=== PATIENT | male | born 1985 | race Caucasian/White ===

== ENCOUNTER 2023-08-19 05:50 | Day surgery (SDC) | payer OTHER ==
[2023-08-13 09:58] LABS: HEMATOCRIT 45.3 % (39.0-48.0); HEMOGLOBIN 15.3 g/dL (13-16.00); MEAN CELL VOLUME 83.1 fL (80.0-100.00); MEAN CORPUSCULAR HEMOGLOBIN 28.1 pg (27.00-32.0); MEAN CORPUSCULAR HGB CONC 33.8 g/dl (32.0-36.0); PLATELET COUNT 188 K/uL (150-450); RED BLOOD COUNT 5.45 M/uL (4.00-6.00); RED CELL DISTRIBUTION WIDTH 14.6 % (11.5-14.5)
[2023-08-13 10:33] LABS: INR 1.01; PARTIAL THROMBOPLASTIN TIME 27.6 SECONDS (22.0-34.0); PROTHROMBIN TIME 10.6 SECONDS (9.0-11.5)
[2023-08-13 10:34] LABS: CALCIUM 9.3 mg/dL (8.5-10.1); CREATININE SERUM 0.86 mg/dL (0.70-1.30); GFR 100.62; POTASSIUM 4.3 mEq/L (3.5-5.1)
== END 2023-08-19 12:05 | disposition home or self-care (01) ==
LOC: CIR.AMB 05:50
PROVIDERS: ATTEND Urology
DX: N47.1 Phimosis (principal); N47.6 Balanoposthitis; N48.0 Leukoplakia of penis; Z20.822 Contact with and (suspected) exposure to COVID-19